=== PATIENT | female | born 1990 | race Caucasian/White ===

== ENCOUNTER 2021-08-15 07:40 | Inpatient (IN) | payer OTHER, SELFPAY ==
[~2021-08-15] VITALS: Ht 160 cm; Wt 90.7 kg
[2021-08-15] MEDS ORDERED: METHYLERGONOVINE 0.2 MG/ML AMP IM PRN ×2 (07:55→23:40)
[2021-08-15] MEDS ORDERED: OXYTOCIN 20 UNITS in LACTATED RINGERS 1,000 ML IV SCH (07:55)
[2021-08-15] MEDS ORDERED: PROMETHAZINE 25 MG/ML VIAL IVP PRN (07:55)
[2021-08-15] MEDS ORDERED: CARBOPROST 250 MCG/ML AMP IM PRN (07:55)
[2021-08-15] MEDS ORDERED: AMPICILLIN 2,000 MG in NACL 0.9% MINI-BAG PLUS 100 ML IV SCH (07:55)
[2021-08-15] MEDS ORDERED: PNV91TAB8 PO (08:08)
[2021-08-15 08:30] VITALS: BP 128/73
[2021-08-15] MEDS ORDERED: AMPICILLIN 2,000 MG VIAL ONE (08:54)
[2021-08-15] MEDS: LACTATED RINGERS 1,000 ML IV SCH ×2 (09:03→20:03)
[2021-08-15] MEDS: NALBUPHINE 10 MG/ML AMP IVP PRN ×2 (09:26→12:23)
[2021-08-15 09:43] LABS: BILIRUBIN,URINE NEGATIVE (NEGATIVE); BLOOD, URINE 3+ (NEGATIVE); COLOR,URINE YELLOW (YELLOW); LEUKOCYTE ESTERASE ,URINE 1+ (NEGATIVE); NITRITE, URINE NEGATIVE (NEGATIVE); UGLUCOSE 1+ (NEGATIVE)
[2021-08-15 09:44] LABS: BASOPHILS % (AUTO) 0.2 % (0.0-2.0); EOSINOPHILS # (AUTO) 0.1 K/uL (0-0.4); EOSINOPHILS % (AUTO) 0.7 % (0.0-4.0); HEMATOCRIT 33.9 % (36-48); HEMOGLOBIN 11.2 g/dL (12.0-16.0); LYMPHOCYTES # (AUTO) 2.1 K/uL (2.5-16.5); LYMPHOCYTES % (AUTO) 13.6 % (20.5-51.1); MEAN CORPUSCULAR HEMOGLOBIN 28 pg (27-31); MEAN CORPUSCULAR HGB CONC 33 g/dL (33-37); MEAN CORPUSCULAR VOLUME 84.9 fL (80-94); MONOCYTES # (AUTO) 0.8 K/uL (0.8-1.0); MONOCYTES % (AUTO) 5.6 % (1.7-9.3); NEUTROPHILS # (AUTO) 12.2 K/uL (1.8-7.7); NEUTROPHILS % (AUTO) 79.9 % (42.2-75.2); PLATELET COUNT (AUTO) 242 K/uL (140-450); RED CELL DISTRIBUTION WIDTH 13.1 % (11.6-13.7); WHITE BLOOD COUNT (AUTO) 15.3 K/uL (4.8-10.8)
[2021-08-15 09:49] LABS: APPEARANCE,URINE HAZY (CLEAR)
[2021-08-15 09:50] LABS: RBC,URINE 20-50 /HPF (0-5)
[2021-08-15 10:04] LABS: BARBITURATE, URINE NEGATIVE ng/ml (NEG <=200); BENZODIAZEPINE, URINE NEGATIVE ng/mL (NEG <=200); CANNABINOID, URINE NEGATIVE ng/mL (NEG <=50); COCAINE, URINE NEGATIVE ng/mL (NEG <=300); OPIATE, URINE NEGATIVE ng/mL (NEG <=2000); PHENCYCLIDINE SCREEN,URINE NEGATIVE ng/mL (NEG <=25)
[2021-08-15] MEDS ORDERED: ROPIVACAINE 0.2%/NS PREMIX 200 ML EPI ONE (13:23)
[2021-08-15] MEDS ORDERED: ROPIVACAINE 0.2%/NS PREMIX 200 ML EPI SCH (13:25)
[2021-08-15] MEDS ORDERED: OXYTOCIN 20 UNITS/LR PREMIX 1,000 ML IV ONE (14:54)
[2021-08-15] MEDS ORDERED: MEASLES, MUMPS, AND RUBELLA 1 VIAL SQVAC ONE (23:40)
[2021-08-15] MEDS ORDERED: AMMONIA AROMATIC 1 INHL INH ONE (23:46)
[2021-08-15] MEDS ORDERED: oxyCODONE/APAP 5/325 MG 1 TAB TAB ONE (23:51)
[2021-08-16] MEDS: oxyCODONE/APAP 5/325 MG 1 TAB TAB PO PRN ×2 (06:37→16:04)
--- NOTE | 2021-08-16 07:54 | NUR ---
PATIENT HAS BEEN SCREENED AND CATEGORIZED LOW NUTRITION RISK. PATIENT WILL BE SEEN WITHIN 7 DAYS OF ADMISSION. 08/21/[address]
[2021-08-16 16:32] LABS: HEMOGLOBIN 9.6 g/dL (12.0-16.0)
== END 2021-08-17 10:15 | disposition home or self-care (01) | DRG 807 ==
LOC: MLD 07:40 → MFCC 08-16 00:55
PROVIDERS: ADMIT Obstetrics & Gynecology; ATTEND Obstetrics & Gynecology
PROC: 10D07Z6 Extraction of Products of Conception, Vacuum, Via Natural or Artificial Opening (ICD-10-PCS; principal; 2021-08-15)
PROC: 0HQ9XZZ Repair Perineum Skin, External Approach (ICD-10-PCS; 2021-08-15)
DX: O76 Abnormality in fetal heart rate and rhythm complicating labor and delivery (principal); Z37.0 Single live birth; O70.0 First degree perineal laceration during delivery; Z3A.39 39 weeks gestation of pregnancy; Z20.822 Contact with and (suspected) exposure to COVID-19
CPT/HCPCS: 36415; 51702; 80305; 81001; 85018; 85025; 86592; 86762; 86886; 86900; 86901; 87086; 87340; 87653-90; J0290; J2300; J2590; J2795